=== PATIENT | female | born 2000 | race Caucasian/White ===

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

== ENCOUNTER 2021-03-10 15:52 | Inpatient (IN) | payer OTHER ==
[2021-03-06 15:53] VITALS: BMI 29.9
[2021-03-10] MEDS ORDERED: DINOPROSTONE 10 MG INSERT.ER VAGINAL ONE (16:14)
--- NOTE | 2021-03-10 20:08 | P.HPOB ---
History of Present Illness H&P Date: 03/10/21 Chief Complaint: Postdates This is a 20 y.o. female, 1, para 0, with an estimated date of confinement of 02/28/2021, estimated gestational age of 41-3/7 weeks, who presents for induction of labor due to post-dates. She presented for cervidil cervical ripening followed by oxytocin induction of labor. She has been feeling more back pain and irregular contractions. course has been complicated by bilateral renal hydronephrosis. She has been evaluated by maternal medicine and they have recommended non-urgent renal ultrasound after delivery. labs: GC/Chlamydia/Trich-neg Hepatitis B Surface antigen-neg RPR-NR Rubella-immune Blood type-O+ Antibody screen-neg HIV-NR Hemoglobin-12.3 Toxoplasma-neg Random glucose-72 1 hr. GTT-124 GBS-neg OB Hx: Certified Registered Nurse Anesthetist Hx: No hx STDs Social Hx: Single, works part-time retail Review of Systems Constitutional: Denies chills, Denies fever Eyes: denies blurred vision, denies pain Ears, nose, mouth and throat: Denies headache, Denies sore throat Cardiovascular: Denies chest pain, Denies shortness of breath Respiratory: Denies cough Genitourinary: Reports pelvic pain, Reports Musculoskeletal: Reports low back pain Integumentary: Denies pruritus, Denies rash Neurological: Denies numbness, Denies weakness Psychiatric: Denies anxiety, Denies depression Past Medical History Past Medical History: Asthma Additional Past Medical History / Comment(s): allergies, heartburn while . History of Any Multi-Drug Resistant Organisms: None Reported Past Surgical History: Adenoidectomy, Tonsillectomy Past Anesthesia/Blood Transfusion Reactions: Motion Sickness, Postoperative Nausea & Vomiting (PONV) Past Psychological History: No Psychological Hx Reported Smoking Status: Never smoker Past Alcohol Use History: None Reported Past Drug Use History: None Reported - Past Family History Mother Family Medical History: No Reported History Medications and Allergies Home Medications Medication Instructions Recorded Confirmed Type Albuterol Sulfate [Proair Hfa] 1 - 2 puff INHALATION Q6HR PRN 03/06/21 03/10/21 History Beclomethasone Dipropionate [Qvar 2 puff INHALATION BID 03/06/21 03/10/21 History 40 mcg Redihaler] Allergies Allergy/AdvReac Type Severity Reaction Status Date / Time No Known Allergies Allergy Verified 03/10/21 16:12 Exam Osteopathic Statement: *. No significant issues noted on an osteopathic structural exam other than those noted in the History and Physical/Consult. Vital Signs Temp Pulse Resp BP 03/10/21 16:12 97.5 F L 96 16 143/79 Intake and Output 03/10/21 03/10/21 03/10/21 06:59 14:59 22:59 Other: Weight 74.389 kg HEENT: within normal limits Heart: regular rate and rhythm Lungs: clear to auscultation bilaterally Abdomen: , non-tender Cervix: 1.5-2 cm/60%/-3 heart tones: reactive, category I Contractions: irregular Extremities: neg. Demarcus's Assessment and Plan (1) Post term at 41 weeks gestation Current Visit: Yes Status: Acute Code(s): O48.0 - POST-TERM ; Z3A.41 - 41 WEEKS GESTATION OF SNOMED Code(s): 29420123669944 Plan: Admission for induction of labor. Since she is now dilated, cervidil is not placed. Will start oxytocin induciton of labor in the morning. Expectant management. Epidural anesthesia if desired.
[2021-03-11] MEDS: LACTATED RINGERS 1,000 ML IV SCH ×6 (01:05→14:37)
[2021-03-11 01:28] LABS: Anisocytosis Slight; Basophils % (A) 0 %; Eosinophils # (A) 0.1 k/uL (0-0.7); Eosinophils % (A) 1 %; HCT 31.3 % (34.0-46.0); HGB 10.1 gm/dL (11.4-16.0); Lymphocytes % (A) 19 %; MCH 26.1 pg (25.0-35.0); MCHC 32.3 g/dL (31.0-37.0); MCV 80.8 fL (80.0-100.0); Monocytes # (A) 0.6 k/uL (0-1.0); Monocytes % (A) 6 %; Neutrophils # (A) 7.2 k/uL (1.3-7.7); Neutrophils % (A) 70 %; Platelet Count 265 k/uL (150-450); RBC 3.87 m/uL (3.80-5.40); RDW 17.3 % (11.5-15.5); WBC 10.3 k/uL (4.0-11.0)
[2021-03-11] MEDS ORDERED: LIDOCAINE 1% (10MG/ML) FOR IV START INTRADERMA PRN (04:53)
[2021-03-11] MEDS ORDERED: LIDOCAINE 0.5% (PF) 5 MG/ML (50 ML SDV) SQ PRN (04:53)
[2021-03-11] MEDS ORDERED: METHYLERGONOVINE 0.2 MG/ML 1 ML AMP IM PRN (04:53)
[2021-03-11] MEDS ORDERED: ALBUTEROL HFA INHALER INHALATION PRN (04:53)
[2021-03-11] MEDS ORDERED: OXYTOCIN 30 UNITS/500 ML NS 30 UNIT in SALINE 1 500ML.BAG IV SCH ×2 (04:53→21:25)
[2021-03-11] MEDS ORDERED: LACTATED RINGERS 1,000 ML IV SCH (04:53)
[2021-03-11] MEDS ORDERED: CARBOPROST TROMETHAMINE 250 MCG/ML 1 ML AMP IM PRN (04:53)
[2021-03-11] MEDS ORDERED: TERBUTALINE 1 MG/ML VIAL SQ PRN (04:53)
[2021-03-11] MEDS ORDERED: OXYTOCIN 10 UNIT/ML 1 ML VIAL IM PRN (04:53)
[2021-03-11] MEDS ORDERED: fentaNYL (PF) 50 MCG/ML 5 ML AMP ONE (09:03)
[2021-03-11] MEDS ORDERED: ROPIVACAINE 5MG/ML 20ML VIAL ONE (09:03)
[2021-03-11] MEDS ORDERED: SODIUM CHLORIDE 0.9% 100 ML BAG ONE (09:03)
[2021-03-11] MEDS ORDERED: ROPIVACAINE 100 MG, fentaNYL (PF). 200 MCG in SODIUM CHLORIDE 0.9% 76 ML EPIDURAL ONE (09:30)
[2021-03-11] MEDS ORDERED: AMPICILLIN 2,000 MG in SODIUM CHLORIDE 0.9% 100 ML IVPB STA (16:46)
[2021-03-11] MEDS ORDERED: ACETAMINOPHEN IV (For NPO) 1,000 MG in EMPTY BAG 1 BAG IVPB STA (18:13)
[2021-03-11] MEDS: FLUTICASONE 110 MCG INHALER INHALATION SCH ×2 (20:18→20:19)
[2021-03-11] MEDS ORDERED: AMPICILLIN 1,000 MG in SODIUM CHLORIDE 0.9% 50 ML IVPB SCH (21:00)
[2021-03-11] MEDS ORDERED: BENZOCAINE/MENTHOL SPRAY 1 GM/SPRAY AEROSOL TOPICAL PRN (21:25)
[2021-03-11] MEDS ORDERED: HYDROCORTISONE 2.5% RECTAL CREAM 30 GM TUBE RECTAL PRN (21:25)
[2021-03-11] MEDS ORDERED: diphenhydrAMINE 50 MG CAP PO PRN (21:25)
[2021-03-11] MEDS ORDERED: diphenhydrAMINE 50 MG/ML 1 ML VIAL IVP PRN ×2 (21:25)
[2021-03-11] MEDS ORDERED: ACETAMINOPHEN TAB 325 MG TAB PO PRN (21:25)
[2021-03-11] MEDS ORDERED: ZOLPIDEM 5 MG TAB PO PRN (21:25)
[2021-03-11] MEDS ORDERED: diphenhydrAMINE 25 MG CAP PO PRN (21:25)
[2021-03-11] MEDS ORDERED: SIMETHICONE 80 MG CHEWABLE PO PRN (21:25)
[2021-03-11] MEDS ORDERED: LANOLIN CREAM 5 GM TUBE TOPICAL PRN (21:25)
--- NOTE | 2021-03-11 21:26 | P.PROBDLV ---
Vaginal Delivery Note - . Vaginal Delivery Note: She progressed to complete dilation after oxytocin induction of labor and artificial rupture membranes with clear fluid noted. She did receive epidural anesthesia. Once reaching approximately 6 cm she did have a low-grade temperature at 100.3 and started to have tachycardia with decreasing variability. She was started on ampicillin 2 g followed by 1 g every 4 hours at that time. She was also given Ofirmev and this did decrease the tachycardia and improve the variability. Once reaching complete, she began pushing. Infant's head came to a crown. With one further push, the infant's head delivered across the perineum followed by the anterior shoulder. Nose and mouth were bulb suctioned at the perineum. Nuchal cord times one was noted and reduced around the with one further push as the remainder the infant easily delivered and was placed on mother's abdomen. Cord was then clamped and cut and infant was taken to warmer for evaluation. A viable male infant is noted with scores of 8 at 1 minute and 9 at 5 minutes and weight of 7 lbs. 7 oz. Inspection of the perineum revealed a second-degree perineal laceration. This area was anesthetized with 1% lidocaine and then sutured with 30 and 2-0 Vicryl suture in the usual multilayer fashion. Next the placenta at this time was ready to separate after approximately 20 minutes. Placenta delivered followed by a couple large blood clots. Placenta was intact with a three-vessel cord and calcifications noted consistent with grade 3 placenta. Uterus contracted fairly well after oxytocin was given and uterine massage was carried out. Also her bladder was drained with a straight cath. Estimated blood loss is approximately 200 mL's. Mother and are in stable condition.
[2021-03-11] MEDS: SENNOSIDES-DOCUSATE SODIUM 1 EACH TAB PO SCH (21:53)
[2021-03-11 22:17] VITALS: RESP 16
[2021-03-11] MEDS: IBUPROFEN 600 MG TAB PO PRN (22:48)
[2021-03-12] MEDS: IBUPROFEN 600 MG TAB PO PRN (08:05)
[2021-03-12] MEDS: SENNOSIDES-DOCUSATE SODIUM 1 EACH TAB PO SCH (08:05)
[2021-03-12 08:38] LABS: Anisocytosis Slight; Basophils % (A) 0 %; Eosinophils % (A) 0 %; HCT 24.3 % (34.0-46.0); Hypochromasia Moderate; Lymphocytes # (A) 1.8 k/uL (1.0-4.8); Lymphocytes % (A) 11 %; MCH 25.9 pg (25.0-35.0); MCHC 31.3 g/dL (31.0-37.0); MCV 82.8 fL (80.0-100.0); Mean Platelet Volume 9.9; Monocytes % (A) 6 %; Neutrophils % (A) 80 %; Platelet Count 243 k/uL (150-450); RBC 2.93 m/uL (3.80-5.40); RDW 17.7 % (11.5-15.5); WBC 16.3 k/uL (4.0-11.0)
[2021-03-12 08:44] LABS: HGB 7.6 gm/dL (11.4-16.0)
[2021-03-12] MEDS: FLUTICASONE 110 MCG INHALER INHALATION SCH ×2 (11:00→20:51)
--- NOTE | 2021-03-12 11:18 | P.DS ---
Providers Date of admission: 03/10/21 15:52 Expected date of discharge: 03/12/21 Attending physician: Sravani York Primary care physician: Stated None - Discharge Diagnosis(es) (1) Post term at 41 weeks gestation Current Visit: Yes Status: Acute Hospital Course: This is a 20-year-old female 1 para 0 at 41-4/7 weeks who presented initially for Cervidil cervical ripening followed by oxytocin induction of labor. When she arrived for Cervidil cervical ripening, she was found to be dilated 1-1/2-2 cm. She stated the night and then started oxytocin induction of labor on 2020. She had artificial rupture membranes with clear fluid noted and then delivered vaginally a viable male infant on 03/11/2021 with scores of 8 at 1 minute and 9 at 5 minutes and infant weight of 7 lbs. 7 oz. Her course has been essentially uncomplicated. Lochia has been minimal. Pain is been well controlled with ibuprofen. She is breast-feeding. Vital signs are stable. Abdomen is soft with fundus firm and nontender. Extremities show negative Homans. Impression is status post vaginal delivery day #1. Land is to discharge home later today as long as baby can go home. She will be given a prescription for a breast pump. She will be also given a prescription for ibuprofen. She is encouraged to continue taking her vitamins and also to take some extra iron due to blood loss anemia. She is advised to follow up in the office in 6 weeks. She is advised to call the office if she has any further questions or concerns prior to her appointment time. Routine instructions are given. Procedures: Oxytocin induction of labor Spontaneous vaginal delivery of a viable male infant on 03/11/2021. Patient Condition at Discharge: Stable Plan - Discharge Summary New Discharge Prescriptions: New Ferrous Fumarate/Ascorbic Acid [Sue-Sequels 65-25 mg Caplet] 1 tab PO DAILY #30 tab Ibuprofen [Motrin] 600 mg PO Q6HR PRN #60 tab PRN Reason: Mild Pain (Scale 1 To 3) Chd-Engq-Lfiig Acid [-U Capsule (formulary)] 1 cap PO DAILY #30 cap Continue Albuterol Sulfate [Proair Hfa] 1 - 2 puff INHALATION Q6HR PRN PRN Reason: Shortness Of Breath Beclomethasone Dipropionate [Qvar 40 mcg Redihaler] 2 puff INHALATION BID Discharge Medication List Albuterol Sulfate [Proair Hfa] 1 - 2 puff INHALATION Q6HR PRN 03/06/21 [History] Beclomethasone Dipropionate [Qvar 40 mcg Redihaler] 2 puff INHALATION BID 03/06/21 [History] Ferrous Fumarate/Ascorbic Acid [Sue-Sequels 65-25 mg Caplet] 1 tab PO DAILY #30 tab 03/12/21 [Rx] Ibuprofen [Motrin] 600 mg PO Q6HR PRN #60 tab 03/12/21 [Rx] Hba-Lhhk-Wpxnn Acid [-U Capsule (formulary)] 1 cap PO DAILY #30 cap 03/12/21 [Rx] Follow up Appointment(s)/Referral(s): Sravani York DO [Doctor of Osteopathic Medicine] - 04/22/21 11:30 am Activity/Diet/Wound Care/Special Instructions: Instructions 1. Do not begin any exercise program for 3 weeks. 2. Do not resume sexual relations for 3 weeks or longer if uncomfortable. 3. You may take tub baths or showers at any time. 4. You may use tampons if desired after 3 weeks. 5. Keep the area of episiotomy (stitches) clean and dry. 6. If you are not nursing, wear a good fitting, supportive bra during the day and limit fluid intake for at least 1 week to prevent breast engorgement. 7. Call the office, [phone], within the next week to make appointment for your 6 week checkup if it has not already been made. 8. Report any of the following occurrences to the doctor promptly: a. Heavy, excessive bleeding b. Chills, fever c. Burning or frequency of urination d. Pain or redness and breasts if nursing e. Increasing pain or swelling in episiotomy (stitches). In addition to the above instructions, the following additional should be followed: 1. No heavy lifting or straining (exercising) until after 6 week checkup. 2. Keep abdominal incision clean and dry: You may wear a dressing if more comfortable. 3. Make office appointment for 10 days after going home or as instructed by her doctor. Discharge Disposition: HOME SELF-CARE
[2021-03-12 16:44] VITALS: BP 121/74; PULSE 111; TEMP 98.6
== END 2021-03-12 22:15 | disposition home or self-care (01) | DRG 807 ==
LOC: 4FBP 15:52
PROVIDERS: ADMIT Obstetrics & Gynecology; ATTEND Obstetrics & Gynecology
PROC: 10E0XZZ Delivery of Products of Conception, External Approach (ICD-10-PCS; principal; 2021-03-11)
PROC: 0KQM0ZZ Repair Perineum Muscle, Open Approach (ICD-10-PCS; 2021-03-11)
DX: O48.0 Post-term pregnancy (principal); Z37.0 Single live birth; D50.0 Iron deficiency anemia secondary to blood loss (chronic); J45.909 Unspecified asthma, uncomplicated; O69.81X0 Labor and delivery complicated by cord around neck, without compression, not applicable or unspecified; O70.1 Second degree perineal laceration during delivery; O76 Abnormality in fetal heart rate and rhythm complicating labor and delivery; O99.02 Anemia complicating childbirth; O99.52 Diseases of the respiratory system complicating childbirth; Z3A.41 41 weeks gestation of pregnancy
CPT/HCPCS: 85025; 86850; 86900; 86901; 88307; 94640